=== PATIENT | female | born 1960 | race Caucasian/White ===

== ENCOUNTER 2018-09-16 11:28 | Day surgery (SDC) | payer OTHER, SELFPAY ==
[2018-09-15 10:07] VITALS: BMI 26.6
[~2018-09-16 11:28] MED LIST: Bupivacaine HCl 0.5%/Epinephrine 1:200,000/PF 30 ml Vial ONE; Lidocaine 1% PF 5 ML VIAL ONE; PROPOFOL 200 MG/20 ML VIAL ONE; ePHEDrine 50 MG/ML VIAL ONE
[2018-09-16] MEDS ORDERED: Midazolam HCl 2 mg/2 ml Vial ONE (12:20)
[2018-09-16] MEDS ORDERED: Fentanyl 100 MCG/2 ML VIAL ONE (12:20)
--- NOTE | 2018-09-16 14:42 | RAD ---
INTRAOPERATIVE FLUOROSCOPY: History: Distal radius and ulnar fracture. FINDINGS: Intraprocedure fluoroscopy demonstrates internal fixation hardware at the level of the distal radius. Ulnar fracture is identified. Alignment has improved. Exposure: 15.4 seconds, 0.3 mGy*cm^2 IMPRESSION: Intraoperative fluoroscopy. POS: [facility]
--- NOTE | 2018-09-16 19:19 | OP ---
DATE OF PROCEDURE: 09/16/2018 PROCEDURES PERFORMED: Open reduction and internal fixation of left distal radius fracture and closed reduction and splinting of right distal radius fracture. PREOPERATIVE DIAGNOSIS: Bilateral distal radius fracture. POSTOPERATIVE DIAGNOSIS: Bilateral distal radius fracture. COMPLICATIONS: None. ESTIMATED BLOOD LOSS: Minimal. SENIOR REGULATORY AFFAIRS SPECIALIST: Abebe Kay. IMPLANT: Synthes volar distal radial plate with multiple locking and nonlocking screws. INDICATIONS: Ms. Bailey is a 58-year-old female who fell. She fractured her bilateral distal radius. Her left was significantly displaced and comminuted and required surgical intervention. The right distal radius can be treated with a closed reduction and splinting. She is aware of risks and benefits and wants to proceed. DESCRIPTION OF PROCEDURE: Ms. Bailey was identified in the preoperative holding area. Her correct extremity was marked. She was carried to the operating room. She was positioned supine. General anesthesia was induced. A multidisciplinary time-out was performed. The left upper extremity was prepped and draped in sterile fashion. We began the procedure with a volar FCR approach to the distal radius. We dissected down through the subcutaneous tissues to the fascia. The fascia was opened. At this point, we exposed the underlying pronator quadratus which was elevated from the bone. We encountered the comminuted distal radial fracture. We then exposed the fracture and pulled traction with a reduction maneuver. We were able to reduce the fracture back into its anatomic position. We placed K-wires holding this. We then applied a Synthes volar distal radial plate. Multiple screws were placed proximally and distally locking the plate to the bone. We took x-ray images confirming this. We filled all screw holes. We took final images. We thoroughly irrigated. We then closed in layers. A sterile dressing and splint were placed. We then moved to the right arm. We evaluated the right distal radius fracture under intraoperative x-ray. The fracture required some gentle flexion and traction. It was reduced into an anatomic position. We then applied a volar splint to the distal radius holding its reduction. The patient was taken to the recovery room in good condition without complication. Job ID: [id number]
== END 2018-09-16 15:50 | disposition home or self-care (01) ==
LOC: SDC 11:28
PROVIDERS: ATTEND Orthopaedic Surgery
PROC: 0PSHXZZ Reposition Right Radius, External Approach (ICD-10-PCS; principal; 2018-09-16)
PROC: 0PSJ04Z Reposition Left Radius with Internal Fixation Device, Open Approach (ICD-10-PCS; principal; 2018-09-16)
DX: S52.532A Colles' fracture of left radius, initial encounter for closed fracture (principal); S52.531A Colles' fracture of right radius, initial encounter for closed fracture; W19.XXXA Unspecified fall, initial encounter
CPT/HCPCS: 76000; C1713; J0670; J2001; J2250; J2704; J3010; J3490